=== PATIENT | female | born 1950 | race Caucasian/White ===

== ENCOUNTER → 2017-10-07 | Outpatient (CLI) | payer MEDICARE, OTHER ==
--- NOTE | 2017-10-07 16:52 | RAD ---
Bone densitometry scan, 10/07/2017: History: Ovarian failure The lumbar spine and right hip were examined utilizing a DEXA technique. The bone mineral density in the lumbar spine as measured from the L1-L4 levels is 1.19 g/sq cm. This yields a T score of 0.1 which is in the normal range. The lumbar spine T score on the previous exam of 06/02/2012 was -0.3. The total T score at the right hip is -1.1, compatible with osteopenia. The right hip T score on the previous exam was -0.8. IMPRESSION: 1. Mild osteopenia has developed at the right hip. 2. Normal lumbar spine bone mineral density measurement.
== END | disposition home or self-care (01) ==
LOC: DXRAD 14:58
PROVIDERS: ATTEND Family Medicine
DX: Z00.01 Encounter for general adult medical examination with abnormal findings (principal); M85.88 Other specified disorders of bone density and structure, other site; E28.39 Other primary ovarian failure
CPT/HCPCS: 77080